=== PATIENT | male | born 1970 | race Caucasian/White ===

== ENCOUNTER 2024-07-27 10:57 | Emergency (ER) | payer OTHER, SELFPAY ==
[2024-07-27] VITALS (7 sets, daily range): BP systolic 107–138; BP diastolic 69–92; BMI 35.4
--- NOTE | 2024-07-27 11:09 | ED.GENMED ---
History of Present Illness
General
Chief Complaint: Chest Pain
Source: patient and ambulance crew
Exam Limitations: none
Time Seen by Provider: 07/27/24 11:07
Nursing documentation reviewed up to this point in time: agreed with
History of Present Illness
History of Present Illness:
53-year-old male w h/o CA 2022, pacemaker 2019, CHF, CVA, HTN, HLD, NIDDM, anxiety/depression, from [facility] states he awakened at 6:30 AM with chest pain, he eventually notified the staff and at 10 AM the staff gave him aspirin 324 mg and a
nitroglycerin and called EMS. Patient arrives here now 11 AM states the nitroglycerin has not helped the chest pain. He states he feels lightheaded, has difficulty taking a deep breath, feels nauseous, pain now 7/10, unchanged from 7 a.m.
Past History
Past History
ED Past Medical History: CHF and HTN
ED Past Surgical History: Orthopedic (Right knee surgery)
Social History
Tobacco: Smoker
Alcohol: Former
Drug: Marijuana and Other (Crystal meth)
Employment: Employed
Review of Systems
Review of Systems
Allergies reviewed?: Yes
All Other Systems: ROS reviewed and negative except as documented in HPI and ROS
Constitutional: Denies fever
Respiratory: Denies trouble breathing
Cardiac: Reports chest pain; Denies diaphoresis, palpitations or syncope
ABD/GI: Reports nausea; Denies abdominal pain or vomiting
: Reports no symptoms
Musculoskeletal: Reports no symptoms
Skin: Reports no symptoms
Neurological: Reports no symptoms
Phy Exam
Physical Exam
Physical Exam:
GENERAL: No acute distress. A&Ox3.
CONSTITUTIONAL: Afebrile.
EYES: PE clear, conjunctivae normal
ENMT: moist mucus membranes, Pharynx nl
RESPIRATORY: Regular respirations, nonlabored, lungs clear.
CARDIOVASCULAR: Regular rate and rhythm, no murmurs, no rubs.
GI: Soft, nontender, normal BS
MUSCULOSKELETAL: Moves with ease. Well perfused.
SKIN: Warm, dry, pink
PSYCH: Normal mood and affect. Well kept, interactive and appropriate
NEUROLOGIC: Awake, alert and oriented. Speech clear. Strength equal throughout. No focal neurological deficits
Scores
Heart Score for Chest Pain Patients
STEMI patient?: Not applicable
Course
Orders/Labs/Results
Orders:
Orders
07/27/24 10:59
EKG [Electrocardiogram (*1)] Urgent
Reason for Study: Chest Pain
EKG- Treatment ONCE
07/27/24 11:07
IV Insert/Care/Rem.- Treatment PRN
07/27/24 11:08
EKG [Electrocardiogram (*1)] Urgent
Reason for Study: Chest Pain
EKG- Treatment ONCE
CR Chest - 2 Views Urgent
Comment:
Reason For Exam: chest pain
07/27/24 11:09
Complete Blood Count/With Diff Urgent
Comprehensive Metabolic Panel Urgent
NT-proBNP Routine
Comment: ADD ON
Troponin I Q3H
Nitroglycerin Sublingual [Nitrostat (Sublingual)] 0.4 mg SL NOW STA
07/27/24 11:15
Add On- LAB Urgent
Tests Added?: Pro BNP
07/27/24 14:27
Troponin I Q3H
07/27/24 15:19
Sacubitril 97/Valsartan 103 [Entresto 97 mg/103 mg] 1 tab PO NOW STA
Abnormal Lab Results
07/27/24
11:09
MPV 10.7 H fL
(7.4-10.4)
Monocytes % 11.9 H %
(1.7-9.3)
Glucose 108 H mg/dl
(70-99)
07/27/24 11:09
07/27/24 11:09
Vital Signs
Initial and Last Documented VS:
Initial Vital Signs
Temp Pulse Resp BP Pulse Ox
98.1 F 61 18 126/83 95
07/27/24 11:00 07/27/24 11:00 07/27/24 11:00 07/27/24 11:00 07/27/24 11:00
Last Documented Vital Signs
Temp Pulse Resp BP Pulse Ox
98.1 F 70 11 126/85 93
07/27/24 11:00 07/27/24 16:00 07/27/24 16:00 07/27/24 16:00 07/27/24 16:00
MDM/Problems Addressed
Differential Diagnosis Includes:
ACS, CHF
MDM/Problems Addressed:
53-year-old male w h/o CA 2022, pacemaker 2019, CHF, CVA, HTN, HLD, NIDDM, anxiety/depression, from [facility] states he awakened at 6:30 AM with chest pain, he eventually notified the staff and at 10 AM the staff gave him aspirin 324 mg and a
nitroglycerin and called EMS. Patient arrives here now 11 AM states the nitroglycerin has not helped the chest pain. He states he feels lightheaded, has difficulty taking a deep breath, feels nauseous, pain now 7/10, unchanged from 7 a.m.
EKG: Sinus rhythm w 1st degree block
11:00 AM:
Troponin number one 0.014
CBC unremarkable
CMP unremarkable
BNP 1190, not clinically significant.
CXR: Cardiomegaly w/o associated pulmonary edema
3:15 p.m.
Troponin #2 is negative
Patient informed that his cardiac workup here today is negative. He is stable for discharge.
Pt requesting his Entresto as they are not giving him that or his Xarelto at the alf. Called and spoke with Anurag Smith NP at the [facility], notified that pt is not getting all his meds, including Xarelto and Entresto, he states pt is getting
his HCTZ, Metoprolol, Aldactone, Farxiga, any that pt is not getting, he will check with nursing supervisor bindery and will look into the delay in getting the medications. Pt notified of this discussion
Pt given a dose Entresto 97/130 here
*EKG
EKG Intrepretation Date: 07/27/24
Interpretation: abnormal
Heart Rate: 62
Rate: normal
Rhythm: sinus
[place]: normal axis
Interval: first degree heart block
QRS Pattern: wide non-specific
Ischemia: no ischemia
*Critical Care Note
Total Time (30-74mins, 75-104mins- exclusive of procedures): Not Applicable
ED Attending Note
-
Portions of this chart may have been created with voice recognition software.� Occasional wrong word or��sound alike� substitutions may have occurred due to the inherent limitations of voice recognition software.
Discharge Plan
Departure
Patient Disposition: Shelter
Date of Disposition: 07/27/24
Time of Disposition: 15:05
Condition: Good
Discharge Problem:
Atypical chest pain
Instructions: Chest Pain That Is Not Caused by the Heart (DC)
Prescriptions:
No Action
magnesium oxide 400 MG tablet
400 mg PO BID
aspirin 81 MG tablet,delayed release (DR/EC)
81 mg PO DAILY 0RF
fluticasone propion-salmeterol [Advair Diskus] 250-50 mcg/dose Blister With Device
1 inh INHALATION R BID
atorvastatin [Lipitor] 20 mg Tablet
20 mg PO HS
metoprolol tartrate [Lopressor] 100 mg Tablet
200 mg PO DAILY
spironolacton-hydrochlorothiaz 25-25 mg Tablet
1 tab PO DAILY
albuterol sulfate [ProAir HFA] 90 mcg/actuation Hfa Aerosol Inhaler
1 inh INHALATION R QIDPRN PRN (Reason: sob)
Xarelto 20 mg Tablet
20 mg PO DAILY
dapagliflozin propanediol [Farxiga] 10 mg Tablet
10 mg PO DAILY
Entresto 97-103 mg Tablet
1 tab PO BID
furosemide 40 MG tablet
40 mg PO MOWEFR
potassium chloride [Klor-Con M20] 20 MEQ tablet,ER particles/crystals
20 meq PO BID
Referrals:
[facility] [Family Provider] -
Yoni Dos Santos MD [Active] - Call in 1-3 days for appt
Activity Restrictions/Additional Instructions:
As we discussed, your workup here today shows nothing worrisome, specifically, no heart attack or injury to your heart.
Call and make appointment to see your mainframe software developer sometime in the next month for a more thorough evaluation.
You were given a dose of Entresto 97/130 here today
Interventions
Interventions:
*Risk Screen - Suicide Last Done: 07/27/24 11:00
*General Assessment Last Done: 07/27/24 11:00
*Neglect/Abuse Screening Last Done: 07/27/24 11:00
ED- Fall Risk Assessment Last Done: 07/27/24 11:14
*ED COVID-19 Vaccine History Last Done: 07/27/24 11:07
*Nursing Disposition Last Done: 07/27/24 16:08
ED- Cardiac Assessment Last Done: 07/27/24 11:14
Discharge Date and Time
Discharge Date/Time: 07/27/24 16:09
Print Language: PERSIAN
[2024-07-27] MEDS: NITROSTAT (SUBLINGUAL) 0.4 MG SL (11:11)
[2024-07-27 11:52] LABS: ALT (SGPT) 35 U/L (0-50); AST (SGOT) 45 U/L (17-59); Albumin 4.2 g/dl (3.5-5.0); Alkaline Phosphatase 60 U/L (38-126); Blood Urea Nitrogen 16 mg/dl (9-20); Calcium 9.7 mg/dl (8.4-10.2); Carbon Dioxide 25 mmol/L (22-30); Chloride 99 mmol/L (98-107); Estimated Creatinine Clearance > 125 ml/min; Glucose 108 mg/dl (70-99); Potassium 3.8 mmol/L (3.5-5.1); Sodium 136 mmol/L (135-145); Total Bilirubin 0.6 mg/dl (0.2-1.3); eGFR > 60.00
[2024-07-27 12:04] LABS: NT-proBNP 1190 pg/ml; Troponin I 0.014 ng/ml
[2024-07-27 12:27] LABS: % Basophils 0.4 % (0-2); % Immature Granulocytes 0.2 % (0-0.5); % Lymphocytes 23.8 % (20.5-51.1); % Monocytes 11.9 % (1.7-9.3); % Neutrophils 59.7 % (42.2-75.2); Absolute Eosinophils 0.2 10^3/uL (0-0.7); Absolute Lymphocytes 1.2 10^3/uL (1.2-3.4); Absolute Monocytes 0.6 10^3/uL (0.1-0.6); Hematocrit 41.8 % (39.0-52.0); Hemoglobin 14.2 g/dL (13.0-18.0); Mean Corpuscular Volume 85.5 fL (80.0-94.0); Mean Platelet Volume 10.7 fL (7.4-10.4); Nucleated Red Blood Cells % 0 % (-); Platelet Count 177 10^3/uL (130-400); Red Blood Cell Count 4.89 10^6/uL (4.70-6.10); Red Cell Dist. Width 12.4 % (11.5-14.5)
[2024-07-27 15:01] LABS: Troponin I < 0.012 ng/ml
[2024-07-27] MEDS: ENTRESTO 97 MG/103 MG 1 TAB PO (16:06)
== END 2024-07-27 16:09 ==
LOC: EMR 10:57
PROVIDERS: Registered Nurse; EMERGENCY PHYSICIAN Student in an Organized Health Care Education/Training Program
DX: R07.89 Other chest pain (principal); R42 Dizziness and giddiness; R11.0 Nausea; I44.0 Atrioventricular block, first degree; I11.0 Hypertensive heart disease with heart failure; I50.9 Heart failure, unspecified; E11.9 Type 2 diabetes mellitus without complications; E78.5 Hyperlipidemia, unspecified; F41.9 Anxiety disorder, unspecified; F32.A Depression, unspecified; F17.200 Nicotine dependence, unspecified, uncomplicated; I25.2 Old myocardial infarction; Z95.0 Presence of cardiac pacemaker; Z86.73 Personal history of transient ischemic attack (TIA), and cerebral infarction without residual deficits; Z79.01 Long term (current) use of anticoagulants; Z79.899 Other long term (current) drug therapy; Z88.0 Allergy status to penicillin
CPT/HCPCS: 99284; 71046; 80053; 83880; 84484; 85025; 93005